=== PATIENT | female | born 1930 | race Caucasian/White ===

== ENCOUNTER 2016-09-21 08:30 | Inpatient (IN) | payer MEDICARE ==
[2016-09-21] MEDS ORDERED: Ondansetron INJ* 2 MG/ML VIAL IV ONE (08:57)
[2016-09-21] MEDS ORDERED: NS 0.9% 1000 ML* 1,000 ML IV ONE (08:57)
--- NOTE | 2016-09-21 09:31 | RAD ---
HISTORY: Flulike symptoms COMPARISONS: January 04, 2016 VIEWS:1: Single frontal portable view of the chest at 9:00 AM FINDINGS: LINES AND TUBES: None. CARDIOMEDIASTINAL SILHOUETTE: The cardiomediastinal silhouette is normal for portable technique. PLEURA: The costophrenic angles are sharp. No pleural abnormalities are noted. LUNG PARENCHYMA: There is hyperinflation. ABDOMEN: The upper abdomen is clear. There is no subphrenic gas. BONES AND SOFT TISSUES: No bone or soft tissue abnormalities are noted. IMPRESSION: HYPERINFLATION. NO ACTIVE CARDIOPULMONARY DISEASE.
[2016-09-21 09:59] LABS: Hematocrit 37 % (35-47); Mean Corpuscular HGB Conc 32 g/dl (31-36); Mean Corpuscular Hemoglobin 28 pg (27-31); Mean Corpuscular Volume 87 fL (80-97); Mean Platelet Volume 8 um3 (7.4-10.4); Red Cell Distribution Width 16 % (10.5-15); White Blood Count 8.1 10^3/ul (3.5-10.8)
[2016-09-21 10:10] LABS: Albumin 3.4 g/dL (3.2-5.2); BUN/Creatinine Ratio 30.3 (8-20); Calcium 8.5 mg/dL (8.6-10.3); EGFR African American 109.7 (>60); EGFR Non-African American 85.3 (>60); Globulin 3.3 g/dL (2-4); Potassium 3.5 mmol/L (3.5-5.0); Total Bilirubin 0.6 mg/dL (0.2-1.0); Total Protein 6.7 g/dL (6.4-8.9)
[2016-09-21 10:11] LABS: Troponin I 0.03 ng/mL (<0.04)
[2016-09-21] MEDS ORDERED: Acetaminophen TAB* 325 MG PO PRN (14:24)
[2016-09-21] MEDS ORDERED: Ondansetron INJ* 2 MG/ML VIAL IV PRN (14:24)
[2016-09-21 14:45] LABS: C Reactive Protein 23.46 mg/L (< 5.00)
[2016-09-21] MEDS: NS 0.9% w/ 20 Meq KCL 1000 ML* 1,000 ML IV SCH (14:45)
[2016-09-21] MEDS: Carbidopa/Levodop 25/100 MG TAB(*) PO SCH ×5 (17:35→22:13)
[2016-09-21] MEDS: Donepezil TAB* 5 MG PO SCH ×3 (17:35→21:30)
--- NOTE | 2016-09-21 23:10 | HP ---
HISTORY AND PHYSICAL: DATE OF ADMISSION: 09/21/16 HISTORY OF PRESENT ILLNESS: Jenniffer Mason is an 86-year-old woman admitted with nausea, vomiting, diarrhea and volume depletion. The patient has history of Parkinson's disease. She is cared for by her at home with the assistance of home health aides. She became ill around 1:30 in the morning yesterday morning. She had diarrhea. Over the course of the past days, she has had diarrhea about 5 times. She has also had a couple of episodes of vomiting, last vomited yesterday morning. She has had very little to eat. She has become quite lethargic. Her daughter, Sujey, who is a nurse here at [facility], visited her last night and was concerned that she was quite dry. This morning, her had trouble waking her up and so he called the ambulance and she is being brought to the emergency room. She got 250 cc of fluid in the ambulance and a liter in the ER and her daughter, Sujey, who is with her, says she has become a little more alert. She is being admitted at this time for further volume repletion. PAST MEDICAL HISTORY: Otherwise significant for the following medical problems: 1. Parkinson's disease. 2. Stable coronary artery disease. 3. 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 4. History of subdural hematoma last year. 5. Hypothyroidism. 6. History of hypertension. 7. Vitamin D deficiency. 8. History of depression. 9. Osteoporosis with history of pathologic fractures due to osteoporosis. 10. History of COPD secondary to smoking. 11. MGUS. 12. History of diverticulosis with history of diverticulitis. PAST SURGICAL HISTORY: 1. 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 2. 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 3. Right cheek excision, squamous cell carcinoma. 4. Stereotactic biopsy, left breast calcifications, 2008. 5. Partial medial meniscectomy, debridement patellofemoral joint, left, 2007. 6. Status post bilateral cataract extractions. 7. Stereotactic breast biopsy, 1999. 8. Breast biopsy benign, 1995. 9. Excision varicose veins, left 1975. 10. Age 15, tonsillectomy. ALLERGIES: To CELECOXIB, CODEINE, HYDROCODONE, MORPHINE, RAMIPRIL, TRAMADOL. CURRENT MEDICATIONS: 1. Carbidopa/levodopa 25/100 one 4 times a day. 2. Alendronate 70 mg weekly. 3. Atenolol 12.5 mg daily. 4. Mirtazapine 15 mg tablet 1-06/15 at bedtime. 5. Levoxyl 112 mcg daily. 6. Acetaminophen 325 two tablets t.i.d. p.r.n. pain. 7. Milk of magnesia 30 cc daily p.r.n. constipation. 8. Artificial Tears 1 drop twice a day. 9. Bisacodyl 10 mg p.r.n. constipation. 10. Aricept 5 mg q. evening. HABITS: Tobacco: Former smoker. ETOH: None. FAMILY HISTORY: Her feels slightly ill today, may be coming down with the same thing she had. Her daughter and son-in-law have had recent respiratory infections. Otherwise noncontributory. SOCIAL AND PERSONAL HISTORY: The patient is retired. She lives with her in their own home. They have home health aides. She had previously been at residential after her subdural hematoma. REVIEW OF SYSTEMS: Generally, she had been feeling fairly well. Her mobility had been improving since coming home from the residential. She denied fevers, chills or sweats. Skin: Negative. HEENT: Negative. Nodes: Negative. Heme: Negative. Endocrine: See above. Breast: See above. Respiratory: See above. Cardiovascular: See above. She is status post a stent in her right coronary artery. GI: See above. : Has a history of an overactive bladder, wears Depends. Musculoskeletal: She feels achy with the present illness. Neurologic : See above. Psychiatric: See above. PHYSICAL EXAMINATION GENERAL: She is an elderly white female, lying on the stretcher, responsive but takes a long time to answer questions and at this point is just answering yes or no. The patient is seen in the presence of her daughter and son-in-law. Her face is flushed. VITAL SIGNS: Blood pressure 115/70, pulse 70, respirations 17, temperature 99, O2 sat 94%. SKIN: Warm and dry. HEENT: Atraumatic, normocephalic. Full EOMs. PERRLA. TMs not clearly seen due to cerumen. Mouth: Pharynx is very dry, coated tongue. NODES: Without adenopathy. CHEST: Showed rales at the bases. HEART: Normal S1, S2. No murmurs, gallops or rubs. ABDOMEN: Soft, nontender. There are no masses or organomegaly. Bowel sounds are present. EXTREMITIES: Show no calf tenderness or edema. NEUROLOGIC: She has a tremor of the mouth. She has increased tone. A detailed neurologic exam was not performed. DIAGNOSTIC STUDIES/LAB DATA: CBC: WBC 8.1, H and H 12/37, MCV 87, PLT 249, 000. INR 1.06. Chemistry: Sodium 136, potassium 3.5, chloride 106, CO2 24. BUN /creatinine 20/0.66, glucose 97, calcium 8.5. The rest of the comprehensive metabolic panel was otherwise within normal limits. Troponin 0.03. Chest x- ray shows no acute disease. IMPRESSION: The patient with nausea, vomiting, diarrhea presumably secondary to viral gastroenteritis. The plan is to admit her for volume repletion. She is DNR per previous wishes. Heparin will not be used for DVT prophylaxis because of her previous subdural bleed. I will put SCDs on her. IV Zofran as needed for nausea. Labs will be followed. [id number]/[facility] #: [id number] MTDD
[2016-09-22] MEDS: NS 0.9% w/ 20 Meq KCL 1000 ML* 1,000 ML IV SCH ×3 (00:38→21:06)
[2016-09-22] MEDS: Levothyroxine TAB* 112 MCG TAB PO SCH (05:24)
[2016-09-22] MEDS: Carbidopa/Levodop 25/100 MG TAB(*) PO SCH ×5 (05:24→21:06)
[2016-09-22 07:12] LABS: Hematocrit 36 % (35-47); Hemoglobin 11.7 g/dl (12.0-16.0); Mean Corpuscular HGB Conc 32 g/dl (31-36); Mean Corpuscular Hemoglobin 28 pg (27-31); Mean Corpuscular Volume 87 fL (80-97); Mean Platelet Volume 7 um3 (7.4-10.4); Red Blood Count 4.14 10^6/ul (4.0-5.4); Red Cell Distribution Width 16 % (10.5-15); White Blood Count 4.9 10^3/ul (3.5-10.8)
[2016-09-22 07:31] LABS: Albumin 2.9 g/dL (3.2-5.2); BUN/Creatinine Ratio 28.8 (8-20); C Reactive Protein 22.86 mg/L (< 5.00); Calcium 8.2 mg/dL (8.6-10.3); EGFR African American 144.5 (>60); EGFR Non-African American 112.3 (>60); Globulin 2.9 g/dL (2-4); Potassium 4.1 mmol/L (3.5-5.0); Total Bilirubin 0.4 mg/dL (0.2-1.0); Total Protein 5.8 g/dL (6.4-8.9)
[2016-09-22] MEDS: Atenolol TAB* 25 MG PO SCH (09:00)
[2016-09-22 10:02] LABS: Magnesium 1.7 mg/dL (1.9-2.7); Phosphorus 2.8 mg/dL (2.5-5.0)
[2016-09-22 15:09] LABS: Urine Bacteria Absent (Absent); Urine Bilirubin Negative (Negative); Urine Glucose Negative (Negative); Urine Nitrite Negative (Negative)
[2016-09-22] MEDS: Donepezil TAB* 5 MG PO SCH (17:40)
[2016-09-23] MEDS: Levothyroxine TAB* 112 MCG TAB PO SCH (05:42)
[2016-09-23] MEDS: NS 0.9% w/ 20 Meq KCL 1000 ML* 1,000 ML IV SCH (05:52)
[2016-09-23 06:10] LABS: Hematocrit 37 % (35-47); Mean Corpuscular HGB Conc 33 g/dl (31-36); Mean Corpuscular Hemoglobin 28 pg (27-31); Mean Corpuscular Volume 86 fL (80-97); Mean Platelet Volume 7 um3 (7.4-10.4); Red Blood Count 4.28 10^6/ul (4.0-5.4); Red Cell Distribution Width 15 % (10.5-15); White Blood Count 7.3 10^3/ul (3.5-10.8)
[2016-09-23 06:28] LABS: BUN/Creatinine Ratio 17.6 (8-20); C Reactive Protein 11.54 mg/L (< 5.00); Calcium 8.4 mg/dL (8.6-10.3); EGFR African American 147.8 (>60); EGFR Non-African American 114.9 (>60); Potassium 3.9 mmol/L (3.5-5.0)
[2016-09-23] MEDS: Atenolol TAB* 25 MG PO SCH (09:34)
[2016-09-23] MEDS: Carbidopa/Levodop 25/100 MG TAB(*) PO SCH ×4 (09:35→21:14)
--- NOTE | 2016-09-23 14:08 | RAD ---
HISTORY: Confusion COMPARISONS: December 21, 2015 TECHNIQUE: Multiple contiguous axial CT scans were obtained of the head without intravenous contrast. FINDINGS: HEMORRHAGE/INFARCT: There is no hemorrhage or acute infarct. MASSES/SHIFT: There is no mass or shift. EXTRA-AXIAL SPACES: There are no extra-axial fluid collections. SULCI AND VENTRICLES: The sulci and ventricles are normal in size and position for the patient's stated age. CEREBRUM: There is extensive hypoattenuation of the periventricular and subcortical white matter. BRAINSTEM: There are no focal parenchymal abnormalities. CEREBELLUM: There has been interval development of encephalomalacia of the left inferior cerebellar hemisphere consistent with chronic infarct VESSELS: The vessels are grossly normal. PARANASAL SINUSES: The paranasal sinuses are clear. ORBITS: The orbits are unremarkable. BONES AND SOFT TISSUE: No bone or soft tissue abnormalities are noted. OTHER: None IMPRESSION: 1. NO ACUTE INTRACRANIAL PATHOLOGY. 2. EXTENSIVE CHRONIC SMALL VESSEL ISCHEMIC CHANGES. 3. THERE HAS BEEN INTERVAL DEVELOPMENT OF LEFT CEREBELLAR ENCEPHALOMALACIA CONSISTENT WITH CHRONIC INFARCT
--- NOTE | 2016-09-23 15:49 | ED ---
Anand Gilliam Adam, scribed for Yves Burger MD on 09/21/16 at 1150 . Complex/Multi-Sys Presentation - HPI Summary HPI Summary: Pt is an 86 year old female presenting with N/V/D and AMS. Patient is nonverbal ; history was obtained from her family. They state that the pt has been vomiting and having diarrhea for the past 2 days. She has a hx of Parkinson's and has a "stone face" at baseline, but the daughter states that the pt's mentation was worse than usual last night. This morning the pt's attempted to wake up the pt and she was unresponsive. They called Dr. Waldron who advised them to come to the ED. Pt denies any pain. - History Of Current Complaint Chief Complaint: EDNauseaVomitDiarrh Time Seen by Provider: 09/21/16 08:47 Hx Obtained From: Family/Employee Benefits Administrator Hx From Patient Unobtainable Due To: Other - Level 5 Caveat due to nonverbal patient Onset/Duration: Gradual Onset, Lasting Days, Still Present Timing: Constant Severity Currently: Moderate Severity Initially: Moderate Associated Signs And Symptoms: Positive: Decreased Responsiveness, Nausea, Vomiting, Diarrhea - Allergies/Home Medications Allergies/Adverse Reactions: Allergies Allergy/AdvReac Type Severity Reaction Status Date / Time Celecoxib [From Celebrex] Allergy Unknown Verified 12/21/15 18:40 Reaction Details Codeine Allergy Unknown Verified 12/21/15 18:40 Reaction Details Hydrocodone Allergy Unknown Verified 12/21/15 18:40 Reaction Details Morphine and Related Allergy Nausea Verified 12/10/15 11:13 Ramipril [From Altace] Allergy Unknown Verified 12/21/15 18:40 Reaction Details Tramadol Allergy Unknown Verified 12/21/15 18:40 Reaction Details PMH/Surg Hx/FS Hx/Imm Hx Endocrine/Hematology History: Reports: Hx Thyroid Disease - hypo Denies: Hx Anticoagulant Therapy, Hx Anemia Cardiovascular History: Reports: Hx Coronary Artery Disease, Hx Hypercholesterolemia, Hx Hypertension Respiratory History: Reports: Hx Chronic Obstructive Pulmonary Disease (COPD) GI History: Reports: Hx Diverticulosis Denies: Hx Jaundice Musculoskeletal History: Reports: Hx Arthritis, Hx Back Problems, Hx Osteoporosis Sensory History: Reports: Hx Contacts or Glasses Denies: Hx Hearing Aid Opthamlomology History: Reports: Hx Contacts or Glasses Neurological History: Reports: Other Neuro Impairments/Disorders - subdural hematoma, parkinsons Denies: Hx Headaches Psychiatric History: Reports: Hx Depression Infectious Disease History: Reports: Hx of Known/Suspected MRSA Denies: Traveled Outside the [place] in Last 30 Days - Family History Known Family History: Positive: Cardiac Disease, Hypertension - Social History Occupation: Retired Lives: With Family - Alcohol Use: Level 5 Caveat due to nonverbal patient. Hx Substance Use: No Substance Use Type: Reports: None Hx Tobacco Use: Yes Smoking Status (MU): Former Smoker Review of Systems Positive: Vomiting, Diarrhea, Nausea Neurological: Other - Decreased responsiveness All Other Systems Reviewed And Are Negative: No - Comments Additional Review of Systems Comments: Level 5 Caveat due to nonverbal patient. Physical Exam Triage Information Reviewed: Yes Vital Signs On Initial Exam: Initial Vitals Temp Pulse Resp BP Pulse Ox 99 F 74 20 131/79 94 09/21/16 08:39 09/21/16 08:39 09/21/16 08:39 09/21/16 08:39 09/21/16 08:39 Vital Signs Reviewed: Yes Completion Of Physical Exam Limited Due To: Level 5 - Nonverbal Appearance: Positive: No Pain Distress Skin: Positive: Other - Skin tents Head/Face: Positive: Normal Head/Face Inspection Eyes: Positive: Normal ENT: Positive: Other - Dry mucous membranes Neck: Positive: Supple, Nontender Respiratory/Lung Sounds: Positive: Clear to Auscultation, Breath Sounds Present Cardiovascular: Positive: RRR Abdomen Description: Positive: Nontender, Soft Bowel Sounds: Positive: Present Musculoskeletal: Positive: Normal Neurological: Positive: Other - Patient responds to voice and follows commands. Psychiatric: Positive: Affect/Mood Appropriate - Raghu Coma Scale Coma Scale Total: 12 Diagnostics - Vital Signs Vital Signs Temp Pulse Resp BP Pulse Ox 09/21/16 09:31 94 09/21/16 09:30 70 17 115/70 94 09/21/16 09:00 77 19 136/84 95 09/21/16 08:42 75 94 09/21/16 08:40 131/79 09/21/16 08:39 99 F 74 20 131/79 94 - Laboratory Lab Results: Lab Results 09/21/16 09/21/16 09/21/16 Range/Units 09:40 09:40 09:40 WBC 8.1 (3.5-10.8) 10^3/ul RBC 4.30 (4.0-5.4) 10^6/ul Hgb 12.0 (12.0-16.0) g/dl Hct 37 (35-47) % MCV 87 (80-97) fL MCH 28 (27-31) pg MCHC 32 (31-36) g/dl RDW 16 H (10.5-15) % Plt Count 249 (150-450) 10^3/ul MPV 8 (7.4-10.4) um3 Neut % (Auto) 82.0 (38-83) % Lymph % (Auto) 8.9 L (25-47) % Glynn % (Auto) 7.5 (1-9) % Eos % (Auto) 0.6 (0-6) % Baso % (Auto) 1.0 (0-2) % Absolute Neuts (auto) 6.6 (1.5-7.7) 10^3/ul Absolute Lymphs (auto) 0.7 L (1.0-4.8) 10^3/ul Absolute Monos (auto) 0.6 (0-0.8) 10^3/ul Absolute Eos (auto) 0 (0-0.6) 10^3/ul Absolute Basos (auto) 0.1 (0-0.2) 10^3/ul Absolute Nucleated RBC 0 10^3/ul Nucleated RBC % 0 INR (Anticoag Therapy) 1.06 (0.89-1.11) Sodium 136 (133-145) mmol/L Potassium 3.5 (3.5-5.0) mmol/L Chloride 106 (101-111) mmol/L Carbon Dioxide 24 (22-32) mmol/L Anion Gap 6 (2-11) mmol/L BUN 20 (6-24) mg/dL Creatinine 0.66 (0.51-0.95) mg/dL Est GFR ( Amer) 109.7 (>60) Est GFR (Non-Af Amer) 85.3 (>60) BUN/Creatinine Ratio 30.3 H (8-20) Glucose 97 (70-100) mg/dL Lactic Acid (0.5-2.0) mmol/L Calcium 8.5 L (8.6-10.3) mg/dL Total Bilirubin 0.60 (0.2-1.0) mg/dL AST 28 (13-39) U/L ALT 10 (7-52) U/L Alkaline Phosphatase 89 (34-104) U/L Troponin I 0.03 (<0.04) ng/mL Total Protein 6.7 (6.4-8.9) g/dL Albumin 3.4 (3.2-5.2) g/dL Globulin 3.3 (2-4) g/dL Albumin/Globulin Ratio 1.0 (1-3) 09/21/16 Range/Units 09:40 WBC (3.5-10.8) 10^3/ul RBC (4.0-5.4) 10^6/ul Hgb (12.0-16.0) g/dl Hct (35-47) % MCV (80-97) fL MCH (27-31) pg MCHC (31-36) g/dl RDW (10.5-15) % Plt Count (150-450) 10^3/ul MPV (7.4-10.4) um3 Neut % (Auto) (38-83) % Lymph % (Auto) (25-47) % Glynn % (Auto) (1-9) % Eos % (Auto) (0-6) % Baso % (Auto) (0-2) % Absolute Neuts (auto) (1.5-7.7) 10^3/ul Absolute Lymphs (auto) (1.0-4.8) 10^3/ul Absolute Monos (auto) (0-0.8) 10^3/ul Absolute Eos (auto) (0-0.6) 10^3/ul Absolute Basos (auto) (0-0.2) 10^3/ul Absolute Nucleated RBC 10^3/ul Nucleated RBC % INR (Anticoag Therapy) (0.89-1.11) Sodium (133-145) mmol/L Potassium (3.5-5.0) mmol/L Chloride (101-111) mmol/L Carbon Dioxide (22-32) mmol/L Anion Gap (2-11) mmol/L BUN (6-24) mg/dL Creatinine (0.51-0.95) mg/dL Est GFR ( Amer) (>60) Est GFR (Non-Af Amer) (>60) BUN/Creatinine Ratio (8-20) Glucose (70-100) mg/dL Lactic Acid 0.8 (0.5-2.0) mmol/L Calcium (8.6-10.3) mg/dL Total Bilirubin (0.2-1.0) mg/dL AST (13-39) U/L ALT (7-52) U/L Alkaline Phosphatase (34-104) U/L Troponin I (<0.04) ng/mL Total Protein (6.4-8.9) g/dL Albumin (3.2-5.2) g/dL Globulin (2-4) g/dL Albumin/Globulin Ratio (1-3) Result Diagrams: 09/23/16 05:34 09/23/16 05:34 Lab Statement: Any lab studies that have been ordered have been reviewed, and results considered in the medical decision making process. - Radiology CXR Radiology Interpretation Completed By: Radiologist - IMPRESSION: HYPERINFLATION. NO ACTIVE CARDIOPULMONARY DISEASE. - Additional Comments Diagnostic Additional Comments: Troponin I - 0.03 Complex Multi-Symp Course/Dx Course Of Treatment: ms. Mason presented appearing clinically dehydrated and rehydration was started. Dr. Weston was consulted for possible admission. - Diagnoses Provider Diagnoses: FLUID DEFICIENT Discharge - Discharge Plan Condition: Stable Disposition: ADMITTED TO [facility] documentation as recorded by the Anand hidalgo Adam accurately reflects the service I personally performed and the decisions made by , Yves Burger MD.
[2016-09-23] MEDS: Donepezil TAB* 5 MG PO SCH (17:10)
[2016-09-24] MEDS: Levothyroxine TAB* 112 MCG TAB PO SCH (05:41)
[2016-09-24 07:58] VITALS: BP 135/79
--- NOTE | 2016-09-24 07:59 | RAD ---
Indication: Foot pain. 3 views of the foot demonstrates osteopenia. Degenerative changes between the tarsometatarsal joints noted. No fracture is noted. IMPRESSION: Degenerative changes of the tarsometatarsal joints of the foot.
--- NOTE | 2016-09-24 08:00 | RAD ---
HISTORY: Left ankle pain COMPARISONS: None VIEWS: 4, Frontal, lateral, and oblique views of the left ankle FINDINGS: BONE DENSITY: There is diffuse osteopenia. BONES: There is no displaced fracture. JOINTS: There is osteoarthritis of the midfoot and of the tibiotalar articulation. ALIGNMENT: There is no dislocation. SOFT TISSUES: Unremarkable. OTHER FINDINGS: None. IMPRESSION: 1. OSTEOPENIA. 2. OSTEOARTHRITIS. 3. NO ACUTE OSSEOUS INJURY. THE DEGREE OF OSTEOPENIA MAY MAKE A NONDISPLACED FRACTURE RADIOGRAPHICALLY OCCULT. IF SYMPTOMS PERSIST, RECOMMEND REPEAT IMAGING..
[2016-09-24] MEDS: Carbidopa/Levodop 25/100 MG TAB(*) PO SCH (08:52)
[2016-09-24] MEDS: Atenolol TAB* 25 MG PO SCH (08:52)
--- NOTE | 2016-09-25 03:02 | DS ---
DISCHARGE SUMMARY: DATE OF ADMISSION: 09/21/16 DATE OF DISCHARGE: 09/24/16 DISCHARGE DIAGNOSES: 1. Viral gastroenteritis with volume depletion. 2. Parkinson's disease. 3. Stable coronary artery disease. 4. Dementia secondary to Parkinson's disease. 5. History of subdural hematoma. 6. Hypothyroidism. 7. History of hypertension. 8. Vitamin D deficiency. 9. History of depression. 10. Osteoporosis with history of pathologic fractures. 11. History of chronic obstructive pulmonary disease secondary to smoking. 12. Monoclonal gammopathy of undetermined significance. 13. History of diverticulosis. 14. Left foot pain secondary to arthritis. 15. MRSA positive. HISTORY: Jenniffer Mason is an 86-year-old woman admitted with nausea, vomiting, diarrhea secondary to viral gastroenteritis with secondary volume depletion. Please see the dictated admission of her details of the present illness, past medical history, family history, social and personal history, review of systems and physical examination. LABORATORY DATA: CBC on admission: WBC 8.1, H and H 12/37, MCV 87, PLT 249, 000. Subsequent white count went to 4.9 and 411 with 7.3 and 412. H and H remained stable. INR was normal at 1.06. Chemistries on admission: Sodium 136 , potassium 3.5, chloride 106, CO2 24, BUN and creatinine 20/0.66, glucose 97, calcium 8.5. Rest of the comprehensive metabolic panel was within normal limits. Magnesium was slightly low at 1.7. CMP was 23.46, came down to 11.54 on 09/23/16. Urinalysis draw clear specific gravity 1.009, pH 6, dipsticks positive for 1+ blood. Micro was unremarkable. MRSA screen was positive in the nose. Blood cultures were negative. Urine culture was no growth. IMAGING: Chest x-ray showed hyperinflation. No active cardiopulmonary disease. Ankle x-ray on 09/23/16 showed osteoarthritis of the mid foot and tibiotalar articulation. No acute osseus injury. Foot x-ray showed degenerative changes of the tarsometatarsal joints of the foot. Brain CT showed small vessel chronic ischemic changes, left cerebellar encephalomalacia consistent with chronic infarct. Otherwise no change. HOSPITAL COURSE: The patient was admitted and placed on IV fluid repletion. She got some IV fluids in the ambulance and more in the emergency room. She became more alert with this. She had no further vomiting or diarrhea. She was DNR per her previous wishes. The heparin prophylaxis was not used because of her previous subdural bleed. SCD's were ordered. IV Zofran was ordered as needed for nausea. This did not have to be given as she had no further nausea. As she recovered from her viral gastroenteritis, her appetite improved. She was able to take clear liquids and then progressed to a light transitional and more normal diet. Her appetite was good enough that she ate 75% of breakfast on the day of discharge. She was seen by Physical Therapy. They felt that her mobility was poor and she required a Flako lift, but the family declined this as they have no problems with her transfers and felt that they could manage without it. At the time of discharge, her vital signs are stable. She did have a low grade fever during the night but is now 97. She is sitting up in the bed, is alert. She says that she wants to go home and feels good. Chest shows rales at the bases which are chronic. Heart is regular. Abdomen is nontender. She has normal bowel sounds. Extremities are without edema or calf tenderness. DISCHARGE MEDICATIONS: She is being discharged on her usual medications. 1. Levothyroxine 112 mcg daily. 2. Carbidopa/levodopa 25/100, 4 times a day. 3. Donepezil 5 mg once a day. 4. Atenolol 25 mg a half daily. 5. Alendronate 70 mg weekly. 6. Mirtazapine 15 mg 1-1/2 at bedtime. 7. Acetaminophen 325 mg 2 pills 3 times a day as needed for pain. 8. Artificial tears 1 drop twice a day. 9. Bisacodyl 10 mg as needed for constipation. 10. Milk of magnesia as needed for constipation. FOLLOWUP: She will follow up with me in 1 week if needed. DIET: Regular. ACTIVITY: As tolerated. CC: Cameron Durant MD* [id number]/[facility] #: [id number] MTDD
== END 2016-09-24 11:45 | disposition home or self-care (01) | DRG 392 ==
LOC: ED 08:30 → MED 13:04 → OBSVTOIN 09-22 11:15
PROVIDERS: ADMIT Internal Medicine Geriatric Medicine; ATTEND Internal Medicine Geriatric Medicine
DX: A08.4 Viral intestinal infection, unspecified (principal); G20 Parkinson's disease; F02.80 Dementia in other diseases classified elsewhere, unspecified severity, without behavioral disturbance, psychotic disturbance, mood disturbance, and anxiety; J44.9 Chronic obstructive pulmonary disease, unspecified; D47.2 Monoclonal gammopathy; B95.62 Methicillin resistant Staphylococcus aureus infection as the cause of diseases classified elsewhere; E86.9 Volume depletion, unspecified; I25.10 Atherosclerotic heart disease of native coronary artery without angina pectoris; E03.9 Hypothyroidism, unspecified; I10 Essential (primary) hypertension; F32.9 Major depressive disorder, single episode, unspecified; M81.0 Age-related osteoporosis without current pathological fracture; M19.072 Primary osteoarthritis, left ankle and foot; Z66 Do not resuscitate; R50.9 Fever, unspecified; Z87.311 Personal history of (healed) other pathological fracture; Z86.73 Personal history of transient ischemic attack (TIA), and cerebral infarction without residual deficits; Z88.5 Allergy status to narcotic agent; Z88.6 Allergy status to analgesic agent; Z88.8 Allergy status to other drugs, medicaments and biological substances; Z85.828 Personal history of other malignant neoplasm of skin; Z98.42 Cataract extraction status, left eye; Z98.41 Cataract extraction status, right eye; Z72.0 Tobacco use
CPT/HCPCS: 36415; 70450; 71010; 80048; 80053; 81003; 81015; 83605; 83735; 84100; 84484; 85025; 85027; 85610; 86140; 87040; 87086; 87641; A9270-GY; G0378; J2405

== ENCOUNTER 2016-11-19 17:45 | Inpatient (IN) | payer MEDICARE ==
[2016-11-19] MEDS ORDERED: Acetaminophen TAB* 325 MG PO PRN ×2 (18:44→20:40)
--- NOTE | 2016-11-19 18:44 | RAD ---
Indication: Syncope. Single frontal view of the chest performed at 1832 hours was reviewed. Comparison is made with previous exam dated September 21, 2016. Hyperinflated lung arreguin are noted. Heart is mildly enlarged. No pleural fluid, pneumonia or pneumothorax is noted. No significant change is noted since September 21, 2016. IMPRESSION: HYPERINFLATED LUNG ARREGUIN WITH NO EVIDENCE OF ACTIVE CARDIOPULMONARY DISEASE.
[2016-11-19] MEDS ORDERED: NS 0.9% 1000 ML* 1,000 ML IV SCH ×2 (18:45→20:45)
[2016-11-19 18:51] LABS: Hematocrit 38 % (35-47); Hemoglobin 12.1 g/dl (12.0-16.0); Mean Corpuscular HGB Conc 32 g/dl (31-36); Mean Corpuscular Hemoglobin 28 pg (27-31); Mean Corpuscular Volume 87 fL (80-97); Mean Platelet Volume 7 um3 (7.4-10.4); Red Blood Count 4.33 10^6/ul (4.0-5.4); Red Cell Distribution Width 15 % (10.5-15)
[2016-11-19 19:07] LABS: Albumin 3.3 g/dL (3.2-5.2); BUN/Creatinine Ratio 23.2 (8-20); Calcium 8.6 mg/dL (8.6-10.3); EGFR African American 132.6 (>60); EGFR Non-African American 103.1 (>60); Globulin 3.2 g/dL (2-4); Magnesium 1.9 mg/dL (1.9-2.7); Potassium 3.6 mmol/L (3.5-5.0); Total Bilirubin 0.3 mg/dL (0.2-1.0); Total Protein 6.5 g/dL (6.4-8.9)
[2016-11-19 19:09] LABS: Troponin I 0.01 ng/mL (<0.04)
[2016-11-19 19:30] LABS: TSH (Thyroid Stimulating Horm) 0.88 mcIU/mL (0.34-5.60)
[2016-11-19] MEDS ORDERED: Docusate CAP* 100 MG PO PRN (20:40)
[2016-11-19] MEDS ORDERED: Ondansetron TAB* 4 MG PO PRN (20:44)
[2016-11-19 21:16] LABS: Urine Bacteria Absent (Absent); Urine Bilirubin Negative (Negative); Urine Glucose Negative (Negative); Urine Nitrite Negative (Negative)
[2016-11-19] MEDS: cefTRIAXone VIAL(*) 1,000 MG in NS 0.9% 50 ML* 50 ML IVPB SCH (23:26)
--- NOTE | 2016-11-19 23:42 | ED ---
Zackery Gilliam Aidan, scribed for Derik Yuan MD on 11/19/16 at 2003 . Syncope/Near Syncope - HPI Summary HPI Summary: 86 y/o female presents to the ED with a complaint of an acute, moderate episode of syncope that occurred just CALL CENTER [employer]OCI[employer] while the patient was sitting in a chair at her long term. According to the patients daughter, she passed out for roughly 5 minutes. During the onset of the syncopal event, she became very pale and diaphoretic. There was no reported head injury. Her mentions that her current symptoms are similar to those she had when she was diagnosed with a UTI. Hx of Parkinson's disease and COPD. - History Of Current Complaint Chief Complaint: EDSyncope Time Seen by Provider: 11/19/16 17:57 Hx Obtained From: Family/[employer]ar[employer] Supervisor - daughter and Onset/Duration: Sudden Onset, Resolved Timing: Intermittent Episode Lasting Context: Witnessed, Loss Of Consciousness Activity At Onset: At Rest Associated Head Trauma: No Aggravating Factor(s): Other - unknown Alleviating Factor(s): Other - unknown Associated Signs And Symptoms: Other - Pt became pale and diaphoretic during the onset of her syncopal event Related History: Similar Episode/Dx as - UTI Frequency: Episodes x___ - x1 (syncope), Episodes Lasting ____ (in Mins/Days/ Weeks/Years) - Pt was out for roughly 5 minutes, according to her daughter - Allergies/Home Medications Allergies/Adverse Reactions: Allergies Allergy/AdvReac Type Severity Reaction Status Date / Time Celecoxib [From Celebrex] Allergy Unknown Verified 12/21/15 18:40 Reaction Details Codeine Allergy Unknown Verified 12/21/15 18:40 Reaction Details Hydrocodone Allergy Unknown Verified 12/21/15 18:40 Reaction Details Morphine and Related Allergy Nausea Verified 12/10/15 11:13 Ramipril [From Altace] Allergy Unknown Verified 12/21/15 18:40 Reaction Details Tramadol Allergy Unknown Verified 12/21/15 18:40 Reaction Details Home Medications: Home Medications Ondansetron [Zofran 8 MG Odt] 1 tab PO Q6HR PRN 11/19/16 [History Confirmed 01/28] PMH/Surg Hx/FS Hx/Imm Hx Endocrine/Hematology History: Reports: Hx Thyroid Disease - hypo Denies: Hx Anticoagulant Therapy, Hx Anemia Cardiovascular History: Reports: Hx Coronary Artery Disease, Hx Hypercholesterolemia, Hx Hypertension Respiratory History: Reports: Hx Chronic Obstructive Pulmonary Disease (COPD) GI History: Reports: Hx Diverticulosis Denies: Hx Jaundice Musculoskeletal History: Reports: Hx Arthritis, Hx Back Problems, Hx Osteoporosis Sensory History: Reports: Hx Contacts or Glasses Denies: Hx Hearing Aid Opthamlomology History: Reports: Hx Contacts or Glasses Neurological History: Reports: Hx Dementia, Other Neuro Impairments/Disorders - subdural hematoma, parkinsons Denies: Hx Headaches Psychiatric History: Reports: Hx Depression Infectious Disease History: No Infectious Disease History: Reports: Hx of Known/Suspected MRSA Denies: Traveled Outside the [place] in Last 30 Days - Family History Known Family History: Positive: Cardiac Disease, Hypertension - Social History Occupation: Retired Lives: At [facility] Alcohol Use: None Hx Substance Use: No Substance Use Type: Reports: None Hx Tobacco Use: Yes Smoking Status (MU): Former Smoker Review of Systems Positive: Skin Diaphoresis. Negative: Fever, Chills, Fatigue Eyes: Negative ENT: Negative Cardiovascular: Negative Respiratory: Negative Gastrointestinal: Negative Genitourinary: Negative Musculoskeletal: Negative Skin: Negative Positive: Syncope. Negative: Headache, Weakness, Paresthesia, Numbness, Slurred Speech Psychological: Normal All Other Systems Reviewed And Are Negative: Yes Physical Exam - Summary Physical Exam Summary: Constitutional: Well-developed, Well-nourished, Alert. (-) Distressed Skin: Warm, Dry HENT: Normocephalic; Atraumatic, (+) dry oral mucosa Eyes: Conjunctiva normal Neck: Musculoskeletal ROM normal neck. (-) JVD, (-) Stridor, (-) Tracheal deviation Cardio: Rhythm regular, rate normal, Heart sounds normal; Intact distal pulses; The pedal pulses are 2+ and symmetric. Radial pulses are 2+ and symmetric. (-) Murmur Pulmonary/Chest wall: Effort normal. (-) Respiratory distress, (-) Wheezes, (-) Rales Abd: Soft, (+) suprapubic tenderness, (-) Distension, (-) Guarding, (-) Rebound Musculoskeletal: (-) Edema Lymph: (-) Cervical adenopathy Neuro: Alert, Oriented x3 Psych: Mood and affect Normal Triage Information Reviewed: Yes Vital Signs On Initial Exam: Initial Vitals Temp Pulse Resp BP Pulse Ox 98.0 F 83 16 111/82 94 11/19/16 17:55 11/19/16 17:55 11/19/16 17:55 11/19/16 17:55 11/19/16 17:55 Vital Signs Reviewed: Yes - Raghu Coma Scale Coma Scale Total: 15 Diagnostics - Vital Signs Vital Signs Temp Pulse Resp BP Pulse Ox 11/19/16 19:22 69 17 122/85 95 11/19/16 19:00 68 18 95 11/19/16 18:50 71 15 94 11/19/16 18:03 98.4 F 68 16 111/82 94 11/19/16 17:55 98.0 F 83 16 111/82 94 - Laboratory Lab Results: Lab Results 11/19/16 11/19/16 11/19/16 Range/Units 18:40 18:40 18:40 WBC 8.0 (3.5-10.8) 10^3/ul RBC 4.33 (4.0-5.4) 10^6/ul Hgb 12.1 (12.0-16.0) g/dl Hct 38 (35-47) % MCV 87 (80-97) fL MCH 28 (27-31) pg MCHC 32 (31-36) g/dl RDW 15 (10.5-15) % Plt Count 273 (150-450) 10^3/ul MPV 7 L (7.4-10.4) um3 Neut % (Auto) 76.4 (38-83) % Lymph % (Auto) 13.4 L (25-47) % [place] % (Auto) 8.8 (1-9) % Eos % (Auto) 0.9 (0-6) % Baso % (Auto) 0.5 (0-2) % Absolute Neuts (auto) 6.1 (1.5-7.7) 10^3/ul Absolute Lymphs (auto) 1.1 (1.0-4.8) 10^3/ul Absolute Monos (auto) 0.7 (0-0.8) 10^3/ul Absolute Eos (auto) 0.1 (0-0.6) 10^3/ul Absolute Basos (auto) 0 (0-0.2) 10^3/ul Absolute Nucleated RBC 0 10^3/ul Nucleated RBC % 0 Sodium 134 (133-145) mmol/L Potassium 3.6 (3.5-5.0) mmol/L Chloride 103 (101-111) mmol/L Carbon Dioxide 24 (22-32) mmol/L Anion Gap 7 (2-11) mmol/L BUN 13 (6-24) mg/dL Creatinine 0.56 (0.51-0.95) mg/dL Est GFR ( Amer) 132.6 (>60) Est GFR (Non-Af Amer) 103.1 (>60) BUN/Creatinine Ratio 23.2 H (8-20) Glucose 109 H (70-100) mg/dL Lactic Acid 1.6 (0.5-2.0) mmol/L Calcium 8.6 (8.6-10.3) mg/dL Magnesium 1.9 (1.9-2.7) mg/dL Total Bilirubin 0.30 (0.2-1.0) mg/dL AST 18 (13-39) U/L ALT 3 L (7-52) U/L Alkaline Phosphatase 84 (34-104) U/L Troponin I 0.01 (<0.04) ng/mL Total Protein 6.5 (6.4-8.9) g/dL Albumin 3.3 (3.2-5.2) g/dL Globulin 3.2 (2-4) g/dL Albumin/Globulin Ratio 1.0 (1-3) TSH 0.88 (0.34-5.60) mcIU/mL Result Diagrams: 11/19/16 18:40 11/19/16 18:40 Lab Statement: Any lab studies that have been ordered have been reviewed, and results considered in the medical decision making process. - Radiology CHEST X-RAY Xray Interpretation: No Acute Changes - IMPRESSION: HYPERINFLATED LUNG ARREGUIN WITH NO EVIDENCE OF ACTIVE CARDIOPULMONARY DISEASE. Radiology Interpretation Completed By: Radiologist - EKG EKG 1910 Cardiac Rate: NL - 68 BPM EKG Rhythm: Sinus Rhythm EKG Interpretation: NORMAL SINUS RHYTHM, NO STEMI Course/Dx Course Of Treatment: 86 y/o female presents for a syncopal event. - Diagnoses Provider Diagnoses: Syncope Discharge - Discharge Plan Condition: Fair Disposition: ADMITTED TO [facility] documentation as recorded by the Zackery hidalgo Aidan accurately reflects the service I personally performed and the decisions made by Lissy brasher Jerry, MD.
--- NOTE | 2016-11-19 23:52 | HP ---
CC: Norma Weston MD * HISTORY AND PHYSICAL: DATE OF ADMISSION: 11/19/16 PRIMARY CARE PROVIDER: Norma Weston MD CHIEF COMPLAINT: I fainted (accompanied by family). HISTORY OF PRESENT ILLNESS: Ms. Mason is a pleasant 86-year-old female with past medical history notable for Parkinson disease, stable coronary disease , and recent subdural hematoma in 2016 who presents with a syncopal episode that was witnessed by her family. She is accompanied by her daughter who is a [employer] employee as well as her who cares her in her home. The patient described decreased oral intake over the past days and a feeling of general malaise. She described a feeling of "upsetment" in her stomach - not pain - and then had a syncopal episode that lasted about 5 minutes with the patient sitting in her recliner. She was not attempting to get up. This made clear that there was not any pain associated with this. She did not lose bowel or bladder control. She turned pale white according to her . The patient regained consciousness spontaneously and EMS was summoned and she was brought to the emergency room. She denied chest pain or palpitations or any recent shortness of breath. The patient did describe dysuria and suprapubic pain and the subjective feeling that she has a urinary tract infection, which she has had in the past. The patient was brought to the emergency room without difficulty and labs were drawn, which were generally unremarkable and UA is pending. Based on clinical history and her elevated BUN to creatinine ratio, I am giving gentle fluids and placing the patient on observation status. She is on telemetry. Her EKG was unremarkable. I do not see a recent echocardiogram in the system and so she will be placed on observation for orthostatic vital signs, rehydration, evaluation for a likely urinary tract infection, and communication with her primary care provider. PAST MEDICAL HISTORY: 1. Parkinson disease. 2. Stable coronary artery disease. 3. 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 4. History of subdural hematoma, 2016. 5. Hypothyroidism. 6. Hypertension. 7. Vitamin D deficiency. 8. Depression. 9. Osteoporosis with secondary pathologic fracture. 10. COPD secondary to smoking. 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 12. History of diverticulosis with history of diverticulitis. PAST SURGICAL HISTORY: Includes: 1. 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 2. 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 3. Right cheek excision, squamous cell carcinoma. 4. Stereotactic biopsy of the left breast secondary to calcifications - 2008. 5. Partial medial meniscectomy with debridement of patellofemoral joint, on the left in 2007. 6. Status post bilateral cataract extractions. 7. Stereotactic breast biopsy, 1999. 8. Breast biopsy benign, 1995. 9. Excision varicose veins, left, in 1975. 10. Age 15 - tonsillectomy. ALLERGIES: To CELECOXIB, CODEINE, HYDROCODONE, MORPHINE, RAMIPRIL, and TRAMADOL. CURRENT MEDICATIONS: 1. Atenolol 12.5 mg by mouth daily. 2. Cholecalciferol/vitamin D3 50,000 units by mouth monthly. 3. Zofran 8 mg p.o. q.6 hours p.r.n. nausea/vomiting. 4. Acetaminophen 650 mg by mouth twice daily as needed for pain/ fever. 5. Carbidopa/levodopa 25/100 mg strength (Sinemet 25/100) 2.5 tablets twice daily. 6. Docusate 200 mg by mouth daily. 7. Aricept 5 mg by mouth at night. 8. Levothyroxine 112 mcg by mouth daily. SOCIAL HISTORY: The patient is cared for in her home. She is accompanied by her . They have [facility] with a substantial presence. The patient's daughter is a nurse at [employer]. The patient's surrogate decision maker is her daughter, Sujey Murguia, who could be reached at [phone] and also her , Howie Mason, who could be reached at [phone] or [phone]. The patient is a nonsmoker and nondrinker. REVIEW OF SYSTEMS: The patient had decreased oral intake over the past few days and a subjective feeling of urinary tract infection. There has been no falls, no chest pain, no sweats, no fevers, no bloody stool, and no noncompliance with medications. Psych: Stable. Neuro: Stable. She feels her Parkinson's maybe a little bit worse than normal, potentially secondary to her current illness. PHYSICAL EXAMINATION GENERAL: An elderly woman who appears very fatigued and tired, and marginally responsive, but does answer questions. VITAL SIGNS: Temperature 98.0 degrees Fahrenheit, pulse 70s-80s consistently and regular; respirations 16-18 and unlabored, oxygen saturation mid-to-high 90s on room air, and blood pressure one-teens over 80s consistently. HEENT: Oropharynx are clear and moist. She has got upper and lower dentures. No posterior pharyngeal erythema or exudate. Neck: Supple. No elevated JVD or painful tender lymphadenopathy. LUNGS: Clear but distant breath sounds consistent with baseline COPD - no wheezing appreciated. HEART: Regular rate and rhythm. No murmurs appreciated. ABDOMEN: Soft and nontender. In the upper quadrant, she has got suprapubic tenderness, consistent with a cystitis. I hear bowel sounds in all 4 quadrants. No masses, rebound, or guarding. SKIN: Dry and intact without rashes, lesions, or breakdown including on her lower extremities. EXTREMITIES: Despite her Parkinson disease, she has got poor muscle bulk. She moves all her extremities, but weakly. NEUROLOGIC: I did not perform a complete neurologic examination nor did I stand the patient given her current lethargy and tiredness. LYMPH: No adenopathy appreciated. DIAGNOSTIC STUDIES/LAB DATA: White blood cell count 8.0, hemoglobin 12.1, and platelets 273. Blood Chemistry is generally unremarkable, save an elevated BUN to creatinine ratio at 23.2, and glucose marginally elevated at 109. Otherwise , her chemistries are unremarkable. Normal LFTs. Preserved protein level. Troponin 0.01. Her EKG was normal sinus without evidence of active ischemia. Her chest x-ray showed clear, but hyperinflated lungs without evidence of focal infiltrate. Telemetry thus far shows normal sinus rhythm without any arrhythmia. ASSESSMENT: Ms. Mason is an 86-year-old frail woman with Parkinson's and history of subdural hematoma and deconditioning at baseline who had a syncopal episode while sitting upright in her recliner, likely secondary to a urinary tract infection - urinalysis and urine culture pending. I placed the patient on observation status with empiric presumption of urinary tract infection because of the classic clinical history. Test in progress to corroborate, but we will start with 100 cc of normal saline per hour with 1 g of IV ceftriaxone to be given once daily based on size and normal creatinine clearance. For syncope, check transthoracic echocardiogram - there has been no echocardiogram in the system recently - Dr. Weston, the patient's PCP, can cancel the order if she is aware of a test from her outpatient records. We will obtain orthostatic vital signs when the patient is rested overnight and rehydrated and were able to cooperate. Right now hemodynamics are unremarkable with the patient recumbent. Continue p.o. Synthroid dose for hypothyroidism - TSH is within normal limits. DNR - MOLST is being updated - we will corroborate with Dr. Weston on confirming. Surrogate decision maker as stated in the social history. DVT prophylaxis will be accomplished with SCDs - anticoagulation will be confirmed as appropriate considering her subdural hematoma - I do not think, there will be a problem, but I want to check. Regular diet. Further decision is based on clinical course. TIME SPENT: Total time taken to admit Ms. Mason was 75 minutes, greater than half of the time was spent at bedside going over the history and physical examination, test results so far, and the plan of care for telemetry monitoring , echocardiogram, orthostatic vital signs, rehydration, and treatment of presumed UTI. [id number]/CPS #: [id number] MTDD
[2016-11-20] MEDS: Levothyroxine TAB* 112 MCG TAB PO SCH (05:32)
[2016-11-20 05:38] LABS: Hematocrit 37 % (35-47); Hemoglobin 12.1 g/dl (12.0-16.0); Mean Corpuscular HGB Conc 33 g/dl (31-36); Mean Corpuscular Hemoglobin 29 pg (27-31); Mean Corpuscular Volume 87 fL (80-97); Mean Platelet Volume 7 um3 (7.4-10.4); Red Blood Count 4.26 10^6/ul (4.0-5.4); Red Cell Distribution Width 15 % (10.5-15); White Blood Count 5.2 10^3/ul (3.5-10.8)
[2016-11-20 06:06] LABS: BUN/Creatinine Ratio 17.9 (8-20); Calcium 8.6 mg/dL (8.6-10.3); EGFR African American 132.6 (>60); EGFR Non-African American 103.1 (>60); Magnesium 1.9 mg/dL (1.9-2.7); Phosphorus 3.4 mg/dL (2.5-5.0)
[2016-11-20] MEDS ORDERED: Atenolol TAB* 25 MG PO SCH (09:00)
[2016-11-20] MEDS: Carbidopa/Levodop 25/100 MG TAB(*) PO SCH ×5 (10:48→22:44)
--- NOTE | 2016-11-20 14:37 | ECHO ---
Patient: OLGA CARMEN [facility] Rec#: [id number] : 1930 Date: 11/20/2016 Age: 86y Height: 167.64 cm / 66.0 in Weight: 47.17 kg / 104.0 lbs Sex: F BSA: 1.51 Room#: [facility] Admit Date#: 11/19/2016 Type: Inpatient Referring: Jace Finley MD Reading: Owen Coley DO [employer]: Josseline Lees RDCS CC: Norma Weston MD Transthoracic Echocardiogram Indication: Syncope BP: 158/97 HR: 49 Rhythm: Bradycardia Indications Syncope Findings History: Parkinson's disease, CAD, hypothyroidism, HTN, COPD, dementia. Technical Comments: The study quality is fair. The study is technically limited due to patient body habitus. Completed at 1105. Left Ventricle: The left ventricular chamber size is normal. There is increased basal septal hypertrophy noted without evidence of an increased gradient across the left ventricular outflow tract. Global left ventricular wall motion and contractility are within normal limits. There is normal left ventricular systolic function. The estimated ejection fraction is 55-60%. Normal left ventricular diastolic filling is observed. The patient was unable to perform a Valsalva maneuver. Left Atrium: The left atrial chamber size is normal. Right Ventricle: The right ventricular chamber size and systolic function are within normal limits. Moderator Band present. Right Atrium: The right atrial cavity size is normal. Aortic Valve: The aortic valve is trileaflet. Mild aortic leaflet calcification is visualized. There is evidence of aortic sclerosis without stenosis. There is a trace of aortic regurgitation. There is no evidence of aortic stenosis. Mitral Valve: The mitral valve leaflets are moderately thickened. There is mild to moderate mitral regurgitation. There is no evidence of mitral stenosis. Tricuspid Valve: The tricuspid valve leaflets are mildly thickened. There is mild tricuspid regurgitation. There is evidence of mild pulmonary hypertension. There is no tricuspid stenosis. Pulmonic Valve: The pulmonic valve appears normal. There is a trace pulmonic regurgitation. There is no pulmonic stenosis. Pericardium: There is no significant pericardial effusion. Aorta: There is mild dilatation of the ascending aorta. The aortic arch is not well visualized. There is no dilation of the aortic root. Pulmonary Artery: The main pulmonary artery appears normal. Venous: The inferior vena cava is dilated. There is a greater than 50% respiratory change in the inferior vena cava dimension. Conclusions The left ventricular chamber size is normal. There is normal left ventricular systolic function. The estimated ejection fraction is 55-60%. The left atrial chamber size is normal. The right ventricular chamber size and systolic function are within normal limits. There is mild to moderate mitral regurgitation. There is evidence of mild pulmonary hypertension. There is no significant pericardial effusion. Compared to prior study from 03/2015, the mitral regurgitation has worsened, there is now mild pulmonary HTN (was normal prior) Measurements Name Value Normal Range RVIDd (AP) 2D 2.9 cm (0.9 - 2.6) RVDdMajor (2D) 3.7 cm (2.2 - 4.4) RAd ISD 4CH 4.9 cm (3.4 - 4.9) RA (A4C)W 4.3 cm (2.9 - 4.6) IVSd (2D) 0.9 cm (0.6 - 1) LVPWd (2D) 0.9 cm (0.6 - 1) LVIDd (2D) 4.6 cm (3.6 - 5.4) LVIDs (2D) 3.2 cm - LV FS (2D) 31 % (25 - 45) Aortic Annulus 1.6 cm (1.4 - 2.6) Ao root diameter (2D) 3.2 cm (2.1 - 3.5) Ascending Ao 3.9 cm (2.1 - 3.4) LA dimension (AP) 2D 3.6 cm (2.3 - 3.8) LAd ISD 4CH 2.9 cm (2.9 - 5.3) LA ISD 4CH W 4.1 cm (2.5 - 4.5) Name Value Normal Range LA ESV SP 4CH (A/L) 24 ml - LA ESV SP 2CH (A/L) 24 ml - LA ESV BP (A/L) 28 ml - LA ESV BP (A/L) index 18.62 ml/m2 - LA ESV SP 4CH (MOD) 19 ml - LA ESV SP 2CH (MOD) 22 ml - Name Value Normal Range MV E-wave Vmax 1 m/sec - MV deceleration time 227 msec - MV A-wave Vmax 0.79 m/sec - MV E:A ratio 1.24 ratio - LV septal e' Vmax 0.07 m/sec - LV lateral e' Vmax 0.11 m/sec - Name Value Normal Range AV Vmax 1.31 m/sec - AV VTI 31.5 cm - AV peak gradient 6.85 mmHg - AV mean gradient 3.94 mmHg - LVOT Vmax 1.09 m/sec - LVOT VTI 24.8 cm - LVOT peak gradient 4.75 mmHg - LVOT mean gradient 2.12 mmHg - Name Value Normal Range MR Vmax 6.26 m/sec - MR VTI 268.53 cm - Name Value Normal Range TR Vmax 3 m/sec - TR peak gradient 36 mmHg - RAP 8 mmHg - RVSP 46 mmHg - IVC diameter 2.5 cm - Name Value Normal Range PV Vmax 0.74 m/sec - PV peak gradient 2.21 mmHg -
--- NOTE | 2016-11-20 15:14 | CONSULT ---
Subjective Date of Service: 11/20/16 Interval History: Admission Date: 11/19/16 PMD/Provider: Norma Weston MD * [place] Upholsterer: Dr. oRsales CHIEF COMPLAINT: Loss of consciousness Reason for consult: Loss of consciousness, bradycardia HISTORY OF PRESENT ILLNESS: Parminder Mason is a pleasant 86-year-old woman with of Parkinson disease, cad s/p PCI 2004 to PCI to mid RCA, subdural hematoma in 2016 who presents with a witness loss of consciousness episode. At the time of evaluation there are no family members present and patient was not able to provide a history. There has been reportedly several days of malaise, decreased PO intake, GI upset followed by a 5 minute LOC while sitting in the recliner. Labs were grossly unremarkable. Given IVF and empirically treated for a possible UTI. Telemetry significant for asymptomatic sinus bradycardia into the 30's when sleeping and also intermittent dropped sinus beats. When she is awake her heart rate appears normal and there no prolonged pauses. PAST MEDICAL HISTORY: 1. Parkinson disease. 2. Stable coronary artery disease s/p PCI 2004 3. 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 4. History of subdural hematoma, 2016. 5. Hypothyroidism. 6. Hypertension. 7. Vitamin D deficiency. 8. Depression. 9. Osteoporosis with secondary pathologic fracture. 10. COPD secondary to smoking. 11. MGUS. 12. History of diverticulosis with history of diverticulitis. PAST SURGICAL HISTORY: Includes: 1. 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 2. 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 3. Right cheek excision, squamous cell carcinoma. 4. Stereotactic biopsy of the left breast secondary to calcifications - 2008. 5. Partial medial meniscectomy with debridement of patellofemoral joint, on the left in 2007. 6. Status post bilateral cataract extractions. 7. Stereotactic breast biopsy, 1999. 8. Breast biopsy benign, 1995. 9. Excision varicose veins, left, in 1975. 10. Age 15 - tonsillectomy. ALLERGIES: To CELECOXIB, CODEINE, HYDROCODONE, MORPHINE, RAMIPRIL, and TRAMADOL. CURRENT MEDICATIONS: 1. Atenolol 12.5 mg by mouth daily. 2. Cholecalciferol/vitamin D3 50,000 units by mouth monthly. 3. Zofran 8 mg p.o. q.6 hours p.r.n. nausea/vomiting. 4. Acetaminophen 650 mg by mouth twice daily as needed for pain/ fever. 5. Carbidopa/levodopa 25/100 mg strength (Sinemet 25/100) 2.5 tablets twice daily. 6. Docusate 200 mg by mouth daily. 7. Aricept 5 mg by mouth at night. 8. Levothyroxine 112 mcg by mouth daily. SOCIAL HISTORY: The patient is cared for in her home. She is accompanied by her . They have [facility] with a substantial presence. The patient's daughter is a nurse at [employer] [facility] [employer]. The patient's surrogate decision maker is her daughter, Sujey Murguia, who could be reached at [phone] and also her , Howie Mason, who could be reached at [phone] or [phone]. The patient is a nonsmoker and nondrinker. Medications Active Medications: Acetaminophen (Tylenol Tab*) 650 mg PO BID PRN PRN Reason: PAIN Carbidopa/Levodopa (Sinemet 25/100 Tab(*)) 1 tab PO 0700,1700 [facility] Last Admin: 11/20/16 10:48 Dose: 1 tab Carbidopa/Levodopa (Sinemet 25/100 Tab(*)) 1.5 tab PO 1230,1730 [facility] Last Admin: 11/20/16 13:30 Dose: 1.5 tab Docusate Sodium (Colace Cap*) 200 mg PO DAILY PRN PRN Reason: CONSTIPATION Ceftriaxone Sodium 1,000 mg/ (Sodium Chloride) 50 mls @ 200 mls/hr IVPB Q24H [facility] Last Admin: 11/19/16 23:26 Dose: 200 mls/hr Levothyroxine Sodium (Synthroid Tab*) 112 mcg PO 0600 [facility] Last Admin: 11/20/16 05:32 Dose: 112 mcg Ondansetron HCl (Zofran Tab*) 4 mg PO Q6H PRN PRN Reason: NAUSEA Home Medications: Acetaminophen TAB* [Tylenol TAB*] 650 mg PO BID PRN 05/13/13 [History Confirmed 11/19/16] Carbidopa/Levodop 25/100 MG(*) [Sinemet 25/100 TAB(*)] 1 tab PO BID 05/13/13 [ History Confirmed 11/19/16] Donepezil TAB* [Aricept 5 MG TAB*] 5 mg PO QPM 05/13/13 [History Confirmed 11/19] Carbidopa/Levodop 25/100 MG(*) [Sinemet 25/100 TAB(*)] 1.5 tab PO BID 12/10/15 [ History Confirmed 11/19/16] Cholecalciferol [Vitamin D3] 50,000 unit PO MONTHLY 12/10/15 [History Confirmed 11/19/16] Docusate CAP* [Colace Cap*] 200 mg PO DAILY PRN 12/10/15 [History Confirmed 01/28] Levothyroxine TAB* [Synthorid 112 MCG TAB*] 112 mcg PO QAM 12/10/15 [History Confirmed 11/19/16] Atenolol 12.5 mg PO DAILY 01/04/16 [History Confirmed 11/19/16] Ondansetron [Zofran 8 MG Odt] 1 tab PO Q6HR PRN 11/19/16 [History Confirmed 01/28] Review of Systems - Review of Systems Review of Systems Statement: Unable to obtain due to mental status Objective Vital Signs: Temp Pulse Resp BP Pulse Ox 98.8 F 65 18 141/74 99 11/20/16 12:05 11/20/16 12:05 11/20/16 12:05 11/20/16 12:05 11/20/16 12:05 Appearance: frail, elderly Ears/Nose/Mouth/Throat: Clear Oropharnyx Neck: NL Appearance and Movements; NL JVP Respiratory: Symmetrical Chest Expansion and Respiratory Effort, Clear to Auscultation Cardiovascular: NL Sounds; No Murmurs; No JVD, RRR, No Edema Abdominal: NL Sounds; No Tenderness; No Distention Extremities: No Edema Skin: No Rash or Ulcers Neurological: - - awake but falls asleep during questioning Laboratory Results: 11/20/16 05:21 11/20/16 05:21 Total Bilirubin 0.30 mg/dL (0.2-1.0) 11/19/16 18:40 AST 18 U/L (13-39) 11/19/16 18:40 ALT 3 U/L (7-52) L 11/19/16 18:40 Alkaline Phosphatase 84 U/L (34-104) 11/19/16 18:40 Total Protein 6.5 g/dL (6.4-8.9) 11/19/16 18:40 Albumin 3.3 g/dL (3.2-5.2) 11/19/16 18:40 Globulin 3.2 g/dL (2-4) 11/19/16 18:40 Albumin/Globulin Ratio 1.0 (1-3) 11/19/16 18:40 TSH 0.88 mcIU/mL (0.34-5.60) 11/19/16 18:40 11/19/16 11/20/16 18:40 05:21 Troponin I 0.01 0.00 Diagnostic Imaging: TTE 11/20/2016: Normal LVEF, no severe valvular abnormalities Assessment/Plan Patient had an episode of LOC following several days of poor PO intake and GI upset. There is evidence of sinus node dysfunction on EKG and telemetry worsened by sleep. Her heart rates when awake and engaged are normal. I discussed for some time with her daughter Sujey Murguia who is an harbor pilot nurse here at [facility] (we also reviewed telemetry together) She thinks it was likely a vagal event in the setting of whatever her recent GI process is and I agree with probable some contribution of sinus node dysfunction. I do not appreciate an absolute indication for a pacemaker and we both do not feel this would be in Jeninffer's best interest. - Would stop atenolol - Would stop aricept which can cause bradycardia especially when combined with a beta-calvin. - Continue telemetry Thank you for allowing me to participate in the cardiovascular care of this patient. Please do not hesitate to contact me with questions or concerns.
[2016-11-20] MEDS ORDERED: Donepezil TAB* 5 MG PO SCH (18:00)
[2016-11-20] MEDS: cefTRIAXone VIAL(*) 1,000 MG in NS 0.9% 50 ML* 50 ML IVPB SCH (22:48)
[2016-11-21] MEDS: Levothyroxine TAB* 112 MCG TAB PO SCH (05:57)
[2016-11-21] MEDS: Carbidopa/Levodop 25/100 MG TAB(*) PO SCH ×2 (09:02→11:54)
[2016-11-21 10:46] VITALS: BP 119/75
--- NOTE | 2016-11-21 11:46 | DS ---
DISCHARGE SUMMARY: DATE OF ADMISSION: 11/19/16 DATE OF DISCHARGE: 11/21/16 DISCHARGE DIAGNOSES: 1. Syncope with bradycardia- possible adverse reactions to ATENOLOL and DONEPEZIL. 2. Parkinson's disease. 3. Stable coronary artery disease. 4. Dementia secondary to Parkinson's disease. 5. History of subdural hematoma. 6. Hypothyroidism. 7. History of hypertension. 8. Vitamin D deficiency. 9. History of depression. 10. Osteoporosis with history of pathologic fractures. 11. History of chronic obstructive pulmonary disease secondary to smoking. 12. History of monoclonal gammopathy of undetermined significance. 13. History of diverticulosis. 14. MRSA positive. HISTORY: Jenniffer Mason is an 86-year-old woman admitted with episode of syncope. Please see the dictated admission note for details of the present illness, past medical history, family history, social and personal history, review of systems, and physical examination. DIAGNOSTIC STUDIES/LAB DATA: Laboratory: CBC: WBC 8; H and H 12.1/38; and PLT 273,000. Repeat CBC was essentially unchanged. Chemistries on admission: Sodium 134, potassium 3.6, chloride 103, CO2 24, BUN and creatinine 13/0.56, glucose 109, and calcium 8.6. Rest of the comprehensive metabolic panel was within normal limits. TSH was 0.88. Troponins were 0.01, 0.00. Urinalysis: Yellow, clear, specific gravity 1.013, pH 6. Dipstick is positive for ketones, trace; esterase trace, rbc's 1+, hyaline cast present. Urine culture was negative. Nasal screen was positive for MRSA. Imaging: Chest x-ray on 11/19/16 showed no acute disease. Hyperinflation was noted. EKG on admission showed sinus rhythm with first-degree AV block. EKG on 11/20/16 showed sinus rhythm, sinus pause with long RR interval, prolonged IL interval, and sinus pause new, otherwise no significant change. Transthoracic echocardiogram on 11/19/16 showed normal LV function, mild-to- moderate mitral regurgitation, and mild pulmonary hypertension. HOSPITAL COURSE: The patient was initially admitted, placed on telemetry, OR was ruled out. It was felt that she might have a urinary tract infection, started on ceftriaxone. When the culture returned it was determined she did not have a urinary tract infection. She was DNR per her previous wishes. Monitoring did show bradycardias down to the 30s with sinus pauses. For this reason, ATENOLOL and DONEPEZIL were stopped. She was also not given MIRTAZAPINE. It was decided that she seemed brighter not having received it the night before, so this will be stopped and see how she does. It was not clear whether she might have had some kind of a gastroenteritis, although had no nausea, vomiting, or diarrhea the preceding week. She had been very lethargic. It was hoped that with change in medication, stopping the ATENOLOL and DONEPEZIL, with her heart rates that she might have more energy. She was seen in consultation by Cardiology, Dr. Coley. He did not feel that a pacemaker was indicated. He did endorse discontinuation of these medications. He felt that she might have had a vagal event, possible GI process with some contribution of sinus node dysfunction. He did not feel that she had an indication for pacemaker. In talking to her daughter, he did not feel that this would be in her best interest. At the time of discharge, her case was discussed with her . She was anxious to go home. MEDICATIONS: Her medications are to be as follows: 1. Carbidopa/levodopa 25/100 mg 4 times daily. 2. Levothyroxine 112 mcg once a day. 3. Vitamin D2 50,000 units once every 3 weeks. 4. Alendronate 70 mg once a week. 5. Acetaminophen 650 mg 3 times a day as needed for pain. 6. Milk of magnesia as needed for constipation. 7. Artificial tears as needed as before. She was told not to take ATENOLOL, DONEPEZIL, and MIRTAZAPINE. She is to see me in 4 to 6 days. DIET: Usual. ACTIVITY: As tolerated. [id number]/[facility] #: [id number] MTDD
== END 2016-11-21 12:40 | disposition home or self-care (01) | DRG 309 ==
LOC: ED 17:45 → MEDTELE 21:07 → OBSVTOIN 11-20 14:32
PROVIDERS: ADMIT Internal Medicine; ATTEND Internal Medicine Geriatric Medicine
DX: R00.1 Bradycardia, unspecified (principal); F02.81 Dementia in other diseases classified elsewhere, unspecified severity, with behavioral disturbance; I11.9 Hypertensive heart disease without heart failure; T44.7X5A Adverse effect of beta-adrenoreceptor antagonists, initial encounter; T44.1X5A Adverse effect of other parasympathomimetics [cholinergics], initial encounter; X58.XXXA Exposure to other specified factors, initial encounter; G20 Parkinson's disease; E03.9 Hypothyroidism, unspecified; I25.10 Atherosclerotic heart disease of native coronary artery without angina pectoris; E55.9 Vitamin D deficiency, unspecified; M81.0 Age-related osteoporosis without current pathological fracture; J44.9 Chronic obstructive pulmonary disease, unspecified; I44.0 Atrioventricular block, first degree; I34.0 Nonrheumatic mitral (valve) insufficiency; I27.2 Other secondary pulmonary hypertension; Z66 Do not resuscitate; Z79.1 Long term (current) use of non-steroidal anti-inflammatories (NSAID); Y92.9 Unspecified place or not applicable; Z79.899 Other long term (current) drug therapy; Z87.310 Personal history of (healed) osteoporosis fracture
CPT/HCPCS: 36415; 71010; 80048; 80053; 81003; 81015; 83605; 83735; 84100; 84443; 84484; 85025; 87086; 87641; 93005; 93306; A9270-GY; G0378; J0696

== ENCOUNTER 2017-03-17 11:00 | Inpatient (IN) | payer MEDICARE ==
[2017-03-17] MEDS ORDERED: Acetaminophen TAB* 325 MG PO PRN (13:00)
--- NOTE | 2017-03-17 13:51 | RAD ---
Indication: Cough. Chronic obstructive pulmonary disease. Tobacco use. Comparison: November 19, 2016 chest radiograph. Technique: AP and lateral sitting chest views. Report: Elevated lung volumes and both diffuse mild prominence of the interstitial markings and patchy rarefaction of the mid to upper lung zone interstitial markings. Prominent first costochondral calcifications noted. No alveolar consolidation, focal pulmonary lesion, pleural effusion, pneumothorax. Upper normal heart size accounting for AP technique. Unremarkable central pulmonary vasculature and mediastinal contours. IMPRESSION: Stigmata of obstructive lung disease. No acute pulmonary or cardiac process evident.
[2017-03-17] MEDS ORDERED: cefTRIAXone* 1 GM in NS 0.9% 50 ML BAG IVPB SCH (14:00)
[2017-03-17] MEDS ORDERED: Azithromycin IV(*) 500 MG in NS 0.9% 250 ML* 250 ML IVPB SCH (14:30)
[2017-03-17 15:17] LABS: Hematocrit 39 % (35-47); Hemoglobin 12.6 g/dl (12.0-16.0); Mean Corpuscular HGB Conc 33 g/dl (31-36); Mean Corpuscular Hemoglobin 28 pg (27-31); Mean Corpuscular Volume 86 fL (80-97); Mean Platelet Volume 7 um3 (7.4-10.4); Red Blood Count 4.49 10^6/ul (4.0-5.4); Red Cell Distribution Width 15 % (10.5-15); White Blood Count 8.1 10^3/ul (3.5-10.8)
[2017-03-17 15:40] LABS: Albumin 3.1 g/dL (3.2-5.2); BUN/Creatinine Ratio 13.4 (8-20); C Reactive Protein 30.39 mg/L (< 5.00); Calcium 8.7 mg/dL (8.6-10.3); EGFR African American 107.6 (>60); EGFR Non-African American 83.7 (>60); Globulin 3.6 g/dL (2-4); Potassium 4.1 mmol/L (3.5-5.0); Total Bilirubin 0.3 mg/dL (0.2-1.0); Total Protein 6.7 g/dL (6.4-8.9)
[2017-03-17] MEDS: Carbidopa/Levodop 25/100 MG TAB(*) PO SCH ×2 (16:31→20:09)
[2017-03-17] MEDS: Heparin VIAL(*) 5000 UNITS/ML VIAL (FIVE THOUSAND) SUBCUT SCH ×2 (16:31→21:53)
[2017-03-17] MEDS: cefTRIAXone* 1 GM in NS 0.9% 50 ML BAG IVPB SCH (16:31)
[2017-03-17] MEDS: Azithromycin IV(*) 500 MG in NS 0.9% 250 ML* 250 ML IVPB SCH (17:03)
[2017-03-17] MEDS: Mirtazapine TAB* 15 MG PO SCH (20:09)
[2017-03-17] MEDS: Artificial Tears* 15 ML BTL BOTH EYES SCH (20:10)
--- NOTE | 2017-03-17 21:09 | HP ---
ADMISSION HISTORY AND PHYSICAL: DATE OF ADMISSION: 03/17/17 HISTORY OF PRESENT ILLNESS: Ms. Mason is an 87-year-old woman admitted with cough, hypoxemia, fever. The patient was in her usual state of health until about 3 to 4 days ago when she developed a mild cough. I spoke to her on 03/15/17 at which time, he said that she could not get up phlegm. Her daughter who is a nurse had listened to her lungs the previous night and thought they were clear. She had no fever. He felt that Robitussin was helping her, but the label said to be cautious with Parkinson disease, so he had not used it regularly. I spoke to him and I said that it was okay to give guaifenesin and dextromethorphan. Today, she was quite weak, not eating well, and with continued frequent cough, she came in to my office where she was found to have hypoxemia with an O2 sat in the high 80s. She is being admitted at this time. PAST MEDICAL HISTORY: Otherwise significant for the following medical problems: 1. Parkinson disease. 2. Stable coronary artery disease. 3. Dementia secondary to Parkinson disease. 4. History of subdural hematoma in 2016. 5. Hypothyroidism, treated. 6. Hypertension in the past, controlled. 7. History of vitamin D deficiency. 8. History of depression. 9. Osteoporosis with history of fracture. 10. COPD with previous history of tobacco abuse. 11. MGUS (IgA kappa). 12. History of diverticulosis with diverticulitis. 13. History of aortic sclerosis. PAST SURGICAL HISTORY: 1. Excision of squamous cell carcinoma in situ, left medial intraorbital cheek. 2. Excision basal cell carcinoma of the left posterior neck. 3. Excision of squamous cell carcinoma, right cheek. 4. Stereotactic biopsy, left breast calcifications 2008, benign. 5. Partial medial meniscectomy debridement at patellofemoral joint, left knee 2007. 6. Status post bilateral cataract extractions. 7. Stereotactic breast biopsy 1999, benign. 8. Breast biopsy benign, 1995. 9. Excision varicose veins, left leg 1975. 10. At age 15, tonsillectomy. CURRENT MEDICATIONS: 1. Carbidopa/levodopa 25/100, 4 times a day. 2. Levoxyl 112 mcg 1 tablet daily 5 days out of 7. 3. Mirtazapine 15 mg 1-1/2 tablets q. evening. 4. Alendronate 70 mg weekly, although she has not taken this recently. 5. Vitamin D2 50,000 units 1 every 3 weeks. 6. Acetaminophen 325 mg 1 to 2 t.i.d. p.r.n. pain. 7. Milk of magnesia 30 cc daily as needed. 8. Artificial tears 1 drop twice a day for dry eyes. ALLERGIES: CELECOXIB, CODEINE, HYDROCODONE, MORPHINE, RAMIPRIL, and TRAMADOL. ATENOLOL and DONEPEZIL (bradycardia). FAMILY HISTORY: Noncontributory. No one at home has been sick. HABITS: Tobacco: Former smoker, quit in 1990. Smoked for 30 years. EtOH: None. Caffeine: Drinks half a cup of coffee per day. SOCIAL AND PERSONAL HISTORY: The patient is . She lives in her own home. She has a home health aide. Her home health aide and her are with her today. She requires 24-hour care. She had previously been in correction and went home about 9 months ago. Phone numbers for her are [phone] or [phone]. REVIEW OF SYSTEMS: Generally, she has been feeling weak. She does not walk at baseline. Her appetite has been diminished. She has had no sweats but did have a fever the first couple of days that she was sick. Skin: She had a decubitus ulcer which healed up in the last few months. This was by using zinc oxide. HEENT: Negative. Nodes: Negative. Heme: Negative. Breasts: Negative. Endocrine: On thyroid replacement for hypothyroidism. Respiratory: See above. She denied chest pain. She denied shortness of breath, but has hypoxemia. GI: Negative. : Negative. BROADBAND TECHNICIAN: Negative. Musculoskeletal: Negative. Neuro: See above. Psychiatric: See above. PHYSICAL EXAMINATION GENERAL: She is an elderly white female, appearing very weak, tired, but in no acute distress. VITAL SIGNS: Blood pressure 132/90, pulse 75, respirations 16, temperature 98.7. O2 sat 87% on room air, 96% on 2 L nasal cannula O2. HEENT: Atraumatic, normocephalic. Full EOMs. Mouth and pharynx showed slightly dry mucous membranes. NODES: No adenopathy. CHEST: Shows diminished breath sounds, rales at the bases. HEART: Normal S1, S2. Grade 1/6 systolic murmur. ABDOMEN: Soft, nontender. There are no masses or organomegaly. Bowel sounds are active. EXTREMITIES: Without edema. NEUROLOGIC: She has increased tone. A detailed neurologic exam was not performed. SKIN: Warm and dry. LABORATORY DATA: Recent labs, CBC: WBC 8.1; H and H 12.6/39; MCV 86; PLT 289, 000. Chemistries: Sodium 136, potassium 4.1, chloride 103, CO2 28, BUN and creatinine 9/0.67, glucose 101, calcium 8.7. Rest of her comprehensive metabolic panel was within normal limits. Procalcitonin 0.1. CRP 30.39. Chest x-ray shows no acute pulmonary process. IMPRESSION: The patient with cough in the setting of an upper respiratory infection. Blood cultures have been drawn. She has been started on antibiotics. DVT prophylaxis is with heparin. She may have an early pneumonia. Labs will be followed. Supplemental oxygen will be used. I may consider steroids for her. She is a full code. This was discussed with her . [id number]/[facility] #: [id number] MTDD
[2017-03-18] MEDS: Carbidopa/Levodop 25/100 MG TAB(*) PO SCH ×4 (06:29→21:49)
[2017-03-18] MEDS: Heparin VIAL(*) 5000 UNITS/ML VIAL (FIVE THOUSAND) SUBCUT SCH ×3 (06:29→21:49)
[2017-03-18] MEDS: Levothyroxine TAB* 112 MCG TAB PO SCH (06:29)
[2017-03-18] MEDS ORDERED: Influenza VAC *QUAD* 2017-18* 0.5 ML SYRINGE IM ONE (09:00)
[2017-03-18] MEDS: Artificial Tears* 15 ML BTL BOTH EYES SCH ×2 (09:08→21:56)
[2017-03-18] MEDS ORDERED: Albuterol 2.5 MG/3 ML NEB.SOL* (0.083%) INH PRN (13:28)
[2017-03-18] MEDS ORDERED: Albuterol 2.5 MG/3 ML NEB.SOL* (0.083%) INH SCH (14:00)
[2017-03-18] MEDS: cefTRIAXone* 1 GM in NS 0.9% 50 ML BAG IVPB SCH (15:27)
[2017-03-18] MEDS: Albuterol 2.5 MG/3 ML NEB.SOL* (0.083%) INH SCH ×3 (15:47→23:41)
[2017-03-18] MEDS: Azithromycin IV(*) 500 MG in NS 0.9% 250 ML* 250 ML IVPB SCH (15:50)
[2017-03-18] MEDS: Mirtazapine TAB* 15 MG PO SCH (21:48)
[2017-03-19] MEDS: Albuterol 2.5 MG/3 ML NEB.SOL* (0.083%) INH SCH ×3 (03:18→11:07)
[2017-03-19] MEDS: Levothyroxine TAB* 112 MCG TAB PO SCH (05:46)
[2017-03-19] MEDS: Heparin VIAL(*) 5000 UNITS/ML VIAL (FIVE THOUSAND) SUBCUT SCH ×3 (05:46→21:15)
[2017-03-19 07:00] LABS: Hematocrit 32 % (35-47); Hemoglobin 10.9 g/dl (12.0-16.0); Mean Corpuscular HGB Conc 34 g/dl (31-36); Mean Corpuscular Hemoglobin 29 pg (27-31); Mean Corpuscular Volume 86 fL (80-97); Mean Platelet Volume 7 um3 (7.4-10.4); Red Blood Count 3.74 10^6/ul (4.0-5.4); Red Cell Distribution Width 15 % (10.5-15); White Blood Count 5.1 10^3/ul (3.5-10.8)
[2017-03-19 07:31] LABS: Albumin 2.8 g/dL (3.2-5.2); C Reactive Protein 30.66 mg/L (< 5.00); Calcium 8.2 mg/dL (8.6-10.3); EGFR African American 150.8 (>60); EGFR Non-African American 117.3 (>60); Globulin 2.9 g/dL (2-4); Total Bilirubin 0.2 mg/dL (0.2-1.0); Total Protein 5.7 g/dL (6.4-8.9)
[2017-03-19] MEDS: Artificial Tears* 15 ML BTL BOTH EYES SCH ×2 (07:49→21:16)
[2017-03-19] MEDS: Carbidopa/Levodop 25/100 MG TAB(*) PO SCH ×4 (07:49→18:15)
[2017-03-19] MEDS ORDERED: Albuterol 2.5 MG/3 ML NEB.SOL* (0.083%) INH PRN (15:00)
[2017-03-19] MEDS: cefTRIAXone* 1 GM in NS 0.9% 50 ML BAG IVPB SCH (15:48)
[2017-03-19] MEDS: Azithromycin IV(*) 500 MG in NS 0.9% 250 ML* 250 ML IVPB SCH (16:26)
[2017-03-19] MEDS: Mirtazapine TAB* 15 MG PO SCH (18:16)
[2017-03-20] MEDS: Heparin VIAL(*) 5000 UNITS/ML VIAL (FIVE THOUSAND) SUBCUT SCH (05:34)
[2017-03-20] MEDS: Levothyroxine TAB* 112 MCG TAB PO SCH (05:35)
[2017-03-20 06:27] LABS: Hematocrit 35 % (35-47); Hemoglobin 11.7 g/dl (12.0-16.0); Mean Corpuscular HGB Conc 34 g/dl (31-36); Mean Corpuscular Hemoglobin 29 pg (27-31); Mean Corpuscular Volume 85 fL (80-97); Mean Platelet Volume 7 um3 (7.4-10.4); Red Blood Count 4.11 10^6/ul (4.0-5.4); Red Cell Distribution Width 15 % (10.5-15)
[2017-03-20 06:48] LABS: BUN/Creatinine Ratio 14.9 (8-20); C Reactive Protein 25.4 mg/L (< 5.00); Calcium 8.7 mg/dL (8.6-10.3); EGFR Non-African American 125.9 (>60)
[2017-03-20] MEDS: Artificial Tears* 15 ML BTL BOTH EYES SCH (07:50)
[2017-03-20] MEDS: Carbidopa/Levodop 25/100 MG TAB(*) PO SCH (07:51)
--- NOTE | 2017-03-20 08:41 | RAD ---
HISTORY: Cough COMPARISONS: March 17, 2017 VIEWS: 2: Frontal and lateral views of the chest. FINDINGS: CARDIOMEDIASTINAL SILHOUETTE: The cardiomediastinal silhouette is normal. NORA: The nora are normal. PLEURA: The costophrenic angles are sharp. No pleural abnormalities are noted. LUNG PARENCHYMA: There is hyperinflation with flattening of the diaphragm and expansion of the AP diameter of the chest. ABDOMEN: The upper abdomen is clear. There is no subphrenic gas. BONES AND SOFT TISSUES: There is diffuse osteopenia. Degenerative changes are noted. OTHER: None. IMPRESSION: HYPERINFLATION, CONSISTENT WITH COPD. NO ACTIVE CARDIOPULMONARY DISEASE.
[2017-03-20 08:55] VITALS: BP 140/92
--- NOTE | 2017-03-20 17:40 | DS ---
DISCHARGE SUMMARY: DATE OF ADMISSION: 03/17/17 DATE OF DISCHARGE: 03/20/17 DISCHARGE DIAGNOSES: 1. Bacterial bronchitis. 2. Parkinson's disease. 3. History of depression. 4. Hypothyroidism. 5. History of stable coronary artery disease. 6. History of vitamin D deficiency. 7. Osteoporosis with history of fracture. 8. Chronic obstructive pulmonary disease with previous history of tobacco abuse. 9. Dementia secondary to Parkinson's disease. 10. History of subdural hematoma in 2016. 11. History of aortic sclerosis. HISTORY: Jenniffer Mason is an 87-year-old woman, admitted with cough, hypoxemia, and fever. Please see the dictated admission note for details of the present illness, past medical history, family history, social and personal history, review of systems, and physical examination. DIAGNOSTIC STUDIES/LAB DATA: CBC on admission: WBC 8.1, H and H 12.6/39, MCV 86, PLT 289K. CBC at discharge: WBC 5, H and H 11.7/35, MCV 85, PLT 277. Chemistries on admission: Sodium 136, potassium 4.1, chloride 103, CO2 28, BUN and creatinine 9/0.67, glucose 101. Rest of her comprehensive metabolic panel was essentially within normal limits. CRP was 30.39 on 03/17/17, 30.66 on 03/19, 25.40 on 03/20/17. Procalcitonin was 0.1. Blood cultures x2 were negative. Urine for legionella and pneumococcal antigens were negative. Sputum for Gram stain, C and S was ordered, but not obtained because the patient could not produce the sputum. Imaging: Chest x-ray on 03/17/17 showed stigmata of COPD. No acute pulmonary or cardiac process is evident. Chest x-ray on 03/20/17 was unchanged. HOSPITAL COURSE: The patient was admitted, she was placed on IV ceftriaxone and azithromycin. She received supplemental oxygen. She was a full code. Heparin was used for DVT prophylaxis. She improved. She got hand-held nebulized albuterol for 24 hours, then was ordered p.r.n., but not used. She did not eat well on admission, this improved. She was eating better at the time of discharge. Initially, she required supplemental oxygen. By the time of discharge, her room air O2 sat was 95%. She was not ambulatory at the time of admission and this is her baseline. At the time of discharge, she was felt to be improved and able to go home. DIET: Her diet is regular. ACTIVITIES: As tolerated. MEDICATIONS: 1. Carbidopa/levodopa 25/100 four times a day. 2. Mirtazapine 15 mg one and one-half tablet at bedtime. 3. Levothyroxine 112 mcg 5 days out of 7 of the week. 4. Vitamin D2 50,000 units every 3 weeks. 5. Acetaminophen 325 one to two 3 times a day as needed for pain. 6. Artificial tears twice a day as needed. 7. Cefuroxime 250 mg twice a day for 3 days. It was felt that she had gotten sufficient amount of azithromycin with the IV doses that she had gotten. PHYSICAL EXAMINATION: At the time of discharge, her vital signs are blood pressure 153/87, pulse 80, respirations 16, temperature 98.2, O2 sat 95% on room air. Her chest shows rales at the bases. Heart is regular with a 2/6 systolic murmur. Abdomen is soft and nontender. Extremities show no calf tenderness or edema. [id number]/[facility] #: [id number] [facility]
== END 2017-03-20 11:00 | disposition home or self-care (01) | DRG 203 ==
LOC: OBSVTOIN 11:00 → MED 11:00 → UNDOADMOB 12:16
PROVIDERS: ADMIT Internal Medicine Geriatric Medicine; ATTEND Internal Medicine Geriatric Medicine
DX: J40 Bronchitis, not specified as acute or chronic (principal); G20 Parkinson's disease; F02.80 Dementia in other diseases classified elsewhere, unspecified severity, without behavioral disturbance, psychotic disturbance, mood disturbance, and anxiety; J44.9 Chronic obstructive pulmonary disease, unspecified; I10 Essential (primary) hypertension; I25.10 Atherosclerotic heart disease of native coronary artery without angina pectoris; R09.02 Hypoxemia; E03.9 Hypothyroidism, unspecified; F32.9 Major depressive disorder, single episode, unspecified; M81.0 Age-related osteoporosis without current pathological fracture; B96.89 Other specified bacterial agents as the cause of diseases classified elsewhere; K57.90 Diverticulosis of intestine, part unspecified, without perforation or abscess without bleeding; I70.0 Atherosclerosis of aorta; Z85.828 Personal history of other malignant neoplasm of skin; Z98.42 Cataract extraction status, left eye; Z98.41 Cataract extraction status, right eye; Z87.820 Personal history of traumatic brain injury; Z87.891 Personal history of nicotine dependence; Z88.5 Allergy status to narcotic agent; Z88.6 Allergy status to analgesic agent; Z88.8 Allergy status to other drugs, medicaments and biological substances
CPT/HCPCS: 36415; 71020; 80048; 80053; 84145; 85025; 85027; 86140; 87040; 87086; 87899; 90686; 94640; 94760; A9270-GY; J0456; J0696; J1644